=== PATIENT | male | born 1955 | race Caucasian/White ===

== ENCOUNTER 2021-04-27 10:57 | Emergency (ER) | payer MEDICAID ==
[~2021-04-27] VITALS: Ht 175.3 cm; Wt 77.3 kg
[2021-04-27 11:07] VITALS: BP 179/98
[2021-04-27] MEDS ORDERED: LIDOcaine 1% 30ml preserv. free vial IJ ONE (14:40)
== END 2021-04-27 15:42 | disposition home or self-care (01) ==
LOC: ER 10:58
DX: S61.213A Laceration without foreign body of left middle finger without damage to nail, initial encounter (principal); S61.215A Laceration without foreign body of left ring finger without damage to nail, initial encounter; W26.8XXA Contact with other sharp object(s), not elsewhere classified, initial encounter; Y93.89 Activity, other specified; Y92.89 Other specified places as the place of occurrence of the external cause; Y99.8 Other external cause status
CPT/HCPCS: 12002; 73140; 99283

== ENCOUNTER 2023-12-08 14:21 | Outpatient (CLI) | payer MEDICARE, MEDICAID ==
[~2023-12-08] VITALS: Ht 180.3 cm; Wt 68.0 kg
[2023-12-08 14:49] VITALS: PULSE 98; RESP 18; O2SAT 97
[2023-12-08 15:04] VITALS: PULSE 105; RESP 16
[2023-12-08] MEDS: albuterol 2.5 MG/3 ML nebule NEB ONE (15:04)
== END 2023-12-08 23:59 | disposition home or self-care (01) ==
LOC: RT 14:21
PROVIDERS: ATTEND Nurse Practitioner Family
DX: J44.9 Chronic obstructive pulmonary disease, unspecified (principal)
CPT/HCPCS: 94060; 94760; Z7610